=== PATIENT | female | born 1925 | race Caucasian/White ===

== ENCOUNTER 2016-06-02 04:09 | Emergency (ER) | payer MEDICARE, OTHER | END 2016-06-02 06:52 | disposition critical access hospital (66) | LOC: ER 04:09 | DX: N28.9 Disorder of kidney and ureter, unspecified (principal); G30.9 Alzheimer's disease, unspecified; I27.2 Other secondary pulmonary hypertension; I10 Essential (primary) hypertension; Z79.82 Long term (current) use of aspirin; Z79.899 Other long term (current) drug therapy; Z79.4 Long term (current) use of insulin; Z88.8 Allergy status to other drugs, medicaments and biological substances; Z88.1 Allergy status to other antibiotic agents; Z88.5 Allergy status to narcotic agent; Z91.048 Other nonmedicinal substance allergy status; Z91.040 Latex allergy status | CPT/HCPCS: 36415; 87502; 96365 ==

== ENCOUNTER 2016-06-02 04:09 | Inpatient (IN) | payer MEDICARE, OTHER ==
[2016-06-08] MEDS ORDERED: LEVEMIR100 UNIT/1 INJ (10:59)
[2016-06-08] MEDS ORDERED: ASPIRIN EC81 MG PO (11:00)
[2016-06-08] MEDS ORDERED: CELEXA10 MG PO (11:00)
[2016-06-08] MEDS ORDERED: DAILY VITE1 EACH PO (11:00)
[2016-06-08] MEDS ORDERED: NOVOLOG1 UNIT/0.0 INJ (11:00)
[2016-06-08] MEDS ORDERED: B-121000 MCG PO (11:09)
[2016-06-08] MEDS ORDERED: METOPROLOL TART25 MG PO (11:09)
[2016-06-08] MEDS ORDERED: VITAMIN D32000 UNI1 PO (11:09)
[2016-06-08] MEDS ORDERED: BENECALORI7.5 KCAL/1 PO (11:10)
[2016-06-08] MEDS ORDERED: CATAPRES0.2 MG PO (11:10)
[2016-06-08] MEDS ORDERED: NAMENDA XR28 MG PO (11:10)
[2016-06-08] MEDS ORDERED: ZOFRAN4 MG PO (11:13)
[2016-06-08] MEDS ORDERED: SENNA8.6 MG PO (11:14)
[2016-06-08] MEDS ORDERED: DULCOLAX10 MG RC (11:14)
[2016-06-08] MEDS ORDERED: PHOSPHATE ORAL45 ML RC (11:14)
[2016-06-08] MEDS ORDERED: TYLENOL EXTRA500 MG PO (11:15)
[2016-06-08] MEDS ORDERED: ACETAMINOPHEN650 MG RC (11:15)
[2016-06-08] MEDS ORDERED: NEXIUM40 MG PO (11:16)
[2016-06-08] MEDS ORDERED: HYDROCODON-ACE1 EAC4 PO (11:16)
[2016-06-08] MEDS ORDERED: NORVASC5 MG PO (11:16)
[2016-06-08] MEDS ORDERED: DIABETIC TUSSI118 ML PO (11:17)
[2016-06-08] MEDS ORDERED: ALBUTEROL2.5 MG/3 M NEB (11:17)
[2016-06-08] MEDS ORDERED: MUCINEX600 MG PO (11:18)
[2016-06-08] MEDS ORDERED: ARTIFICIAL TEAR15 ML OU (11:18)
[2016-06-08] MEDS ORDERED: AUGMENTIN 875-1 EACH PO (11:20)
== END 2016-06-08 13:14 | DRG 871 ==
LOC: ER 04:09 → MED 06:53
PROVIDERS: ADMIT Internal Medicine
DX: A41.9 Sepsis, unspecified organism (principal); J69.0 Pneumonitis due to inhalation of food and vomit; J96.01 Acute respiratory failure with hypoxia; I21.4 Non-ST elevation (NSTEMI) myocardial infarction; N39.0 Urinary tract infection, site not specified; N17.9 Acute kidney failure, unspecified; E87.0 Hyperosmolality and hypernatremia; E87.2 Acidosis; R13.10 Dysphagia, unspecified; B96.20 Unspecified Escherichia coli [E. coli] as the cause of diseases classified elsewhere; I12.9 Hypertensive chronic kidney disease with stage 1 through stage 4 chronic kidney disease, or unspecified chronic kidney disease; N18.3 Chronic kidney disease, stage 3 (moderate); Z74.01 Bed confinement status; E11.22 Type 2 diabetes mellitus with diabetic chronic kidney disease; G30.9 Alzheimer's disease, unspecified; F02.80 Dementia in other diseases classified elsewhere, unspecified severity, without behavioral disturbance, psychotic disturbance, mood disturbance, and anxiety; Z66 Do not resuscitate; E78.5 Hyperlipidemia, unspecified; F32.9 Major depressive disorder, single episode, unspecified; D53.9 Nutritional anemia, unspecified; Z88.1 Allergy status to other antibiotic agents; Z91.040 Latex allergy status; Z88.8 Allergy status to other drugs, medicaments and biological substances; Z91.048 Other nonmedicinal substance allergy status; Z79.82 Long term (current) use of aspirin; Z79.4 Long term (current) use of insulin; Z79.899 Other long term (current) drug therapy; Z80.0 Family history of malignant neoplasm of digestive organs; Z84.89 Family history of other specified conditions
CPT/HCPCS: 36415; 87502; 92610; 92611; 93306; 94664; 97162-GP; J0360; J1650